=== PATIENT | male | born 1960 | race African-American/Black ===

== ENCOUNTER 2019-02-19 21:00 | Emergency (ER) | payer OTHER ==
[~2019-02-19] VITALS: Ht 175.3 cm; Wt 71.7 kg
[2019-02-19 21:05] VITALS: BP 106/68
--- NOTE | 2019-02-19 21:05 | NUR ---
ED Nurse Note: Patient presents with complaints of abnormal sugar level taken yesterday in primary care's office. Patient was informed to report to ER today,.
[2019-02-19] MEDS ORDERED: METFORMIN HCL1000 M1 ORAL (21:09)
[2019-02-19] MEDS ORDERED: LOSARTAN POTASS50 MG ORAL (21:09)
[2019-02-19] MEDS ORDERED: JANUVIA25 MG ORAL (21:12)
[2019-02-19] MEDS ORDERED: Insulin Human Regular 100units/ml 3ml IV ONE (21:30)
--- NOTE | 2019-02-19 21:34 | Emergency Room Report ---
History of Present Illness General Chief Complaint: Abnormal Labs Source: Patient Present Illness HPI This is a 58-year-old male with a history of diabetes. He said his hemoglobin A1c is 14%. He came in with chief complaint abnormal labs. He had outpatient labs done yesterday and was called to go to the hospital because sugar was 430. Patient denies any symptoms. He is not on insulin. No fever chills but no nausea no vomiting. No other complaint. Allergies: Coded Allergies: PENICILLINS (Verified Allergy, Unknown, 02/19/19) Patient History Past Medical History: see triage record, old chart reviewed, DM Past Surgical History: none Pertinent Family History: none Social History: Denies: smoking Immunizations: other Reviewed Nursing Documentation: PMH: Agreed; PSxH: Agreed Nursing Documentation-PMH Past Medical History: No History, Except For Hx Hypertension: Yes Hx Diabetes: Yes - type 2 Review of Systems Eye: Denies: eye pain, blurred vision ENT: Denies: ear pain, nose congestion, throat swelling Respiratory: Denies: cough, shortness of breath Cardiovascular: Denies: chest pain, palpitations Gastrointestinal: Denies: abdominal pain, diarrhea, nausea, vomiting Musculoskeletal: Denies: back pain, joint pain Skin: Denies: rash Neurological: Denies: headache, numbness Endocrine: Denies: increased thirst, increased urine Hematologic/Lymphatic: Denies: easy bruising All Other Systems: negative except mentioned in HPI Physical Exam Vital Signs Date Time Temp Pulse Resp B/P (MAP) Pulse Ox O2 Delivery O2 Flow Rate FiO2 02/19/19 21:05 98.2 120 18 106/68 (81) 95 Room Air Vitals normal except for tachycardia Sp02 EP Interpretation: reviewed, normal General Appearance: well appearing, no apparent distress, alert Head: normocephalic, atraumatic Eyes: bilateral eye PERRL, bilateral eye EOMI ENT: hearing grossly normal, normal pharynx Neck: full range of motion, supple, no meningismus Respiratory: chest non-tender, lungs clear, normal breath sounds Cardiovascular #1: regular rate, rhythm, no murmur Gastrointestinal: normal bowel sounds, non tender, no mass, no organomegaly, no bruit, non-distended Musculoskeletal: back normal, gait/station normal, normal range of motion Psychiatric: mood/affect normal Medical Decision Making Diagnostic Impression: Primary Impression: Uncontrolled diabetes mellitus Qualified Codes: E11.65 - Type 2 diabetes mellitus with hyperglycemia ER Course Patient presents with hyperglycemia secondary to uncontrolled and probably noncompliant with medication and diet. No evidence of DKA. No evidence of infection. Will discharge home. He may need to be on insulin. 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 We will have him follow-up with his doctor for further management of his medication. I advised patient that if he does not control his close better, he has increased risk for stroke, heart attack, renal failure and infection. He needs to control his hemoglobin A1c better. Last Vital Signs Date Time Temp Pulse Resp B/P (MAP) Pulse Ox O2 Delivery O2 Flow Rate FiO2 02/19/19 21:05 98.2 120 18 106/68 (81) 95 Room Air Status: improved Disposition: HOME, SELF-CARE Condition: Stable Additional Instructions: You need to check your blood sugar regularly. You need to watch your diet and take your medication. Your hemoglobin A1c is way too high. Your increased risk for stroke, heart attacks, kidney failure, amputations and infection to name a few. Follow-up with your doctor within a week. May need to be on insulin. Discuss this with your doctor. Return if symptoms worsen. Juan Marinelli MD Feb 19, 2019 21:34
[2019-02-19 21:53] LABS: APPEARANCE,URINE CLEAR; BILIRUBIN, URINE NEGATIVE (NEGATIVE); COLOR,URINE PALE YELLOW; GLUCOSE, URINE (UA) 4+ (NEGATIVE); KETONES,URINE NEGATIVE (NEGATIVE); LEUKOCYTE ESTERASE ,URINE NEGATIVE (NEGATIVE); NITRITE,URINE NEGATIVE (NEGATIVE); PH,URINE 5 (4.5-8.0); PROTEIN,URINE NEGATIVE (NEGATIVE); UROBILINOGEN,URINE NORMAL MG/DL (0.0-1.0)
[2019-02-19 21:55] LABS: BASOPHILS % (AUTO) 0.8 % (0.0-2.0); EOSINOPHILS % (AUTO) 1.9 % (0.0-3.0); HEMATOCRIT 43.3 % (42.0-52.0); HEMOGLOBIN 13.4 G/DL (14.2-18.0); LYMPHOCYTES % (AUTO) 29.7 % (20.0-45.0); MEAN CORPUSCULAR VOLUME 74 FL (80-99); MONOCYTES % (AUTO) 10.8 % (1.0-10.0); NEUTROPHILS % (AUTO) 56.7 % (45.0-75.0); PLATELET COUNT 346 K/UL (150-450); RED BLOOD COUNT 5.84 M/UL (4.70-6.10); RED CELL DISTRIBUTION WIDTH 11.5 % (11.6-14.8); WHITE BLOOD COUNT 5.9 K/UL (4.8-10.8)
[2019-02-19 22:05] LABS: ANION GAP 10 mmol/L (5-15); BLOOD UREA NITROGEN 14 mg/dL (7-18); CALCIUM 9.6 MG/DL (8.5-10.1); CARBON DIOXIDE 26 MMOL/L (21-32); CHLORIDE 100 MMOL/L (98-107); POTASSIUM 3.6 MMOL/L (3.5-5.1); SODIUM 136 MMOL/L (136-145)
--- NOTE | 2019-02-19 22:22 | NUR ---
ED Nurse Note: Patient tolerated insulin and fluids well. Patient is resting comfortably with no s/s of acute distress.
--- NOTE | 2019-02-19 22:51 | NUR ---
ED Nurse Note: Patient cleared for discharge, verbalized understanding of discharge instructions. ID band removed. IV removed. Patient departed with all belongings, to drive home.
[2019-02-19 22:52] VITALS: BP 106/68
== END 2019-02-19 22:55 | disposition home or self-care (01) ==
LOC: EMR 21:47
DX: E11.65 Type 2 diabetes mellitus with hyperglycemia (principal); I10 Essential (primary) hypertension; Z88.0 Allergy status to penicillin
CPT/HCPCS: 36415; 80048; 80307; 81001; 85025; 96361; 96374; 99284; J1815